=== PATIENT | female | born 1990 | race African-American/Black ===

== ENCOUNTER 2019-08-05 16:39 | Emergency (ER) | payer MEDICAID ==
[~2019-08-05] VITALS: Ht 167.6 cm; Wt 122.5 kg
[2019-08-05 16:58] VITALS: BP_SYST 120
--- NOTE | 2019-08-05 20:15 | NUR ---
Patient to ER CHAIR to gown for evaluation. Side rails up. Report given to IVETH MONREAL.
--- NOTE | 2019-08-05 20:23 | NUR ---
ANGELIA SPANN at bedside examining patient.
--- NOTE | 2019-08-05 20:25 | NUR ---
Pt C/O head pain S/P mechanical slip and fall x 2 days. Denies any KO, N/V, or any other symptoms at this time. Pt is ambulatory and walked to [facility] without incident. Will continue to monitor.
--- NOTE | 2019-08-05 20:38 | NUR ---
Patient given written and verbal discharge instructions and verbalizes understanding. ER MD discussed with patient the results and treatment provided. Patient in stable condition. ID arm band removed. Rx of Tylenol given. Patient educated on pain management and to follow up with PMD. Pain Scale 0. Opportunity for questions provided and answered. Medication side effect fact sheet provided.
[2019-08-05 20:39] VITALS: BP_SYST 120
== END 2019-08-05 20:38 | disposition home or self-care (01) ==
LOC: SED 16:39
DX: S09.90XA Unspecified injury of head, initial encounter (principal); R03.0 Elevated blood-pressure reading, without diagnosis of hypertension; J45.909 Unspecified asthma, uncomplicated; F32.9 Major depressive disorder, single episode, unspecified; W06.XXXA Fall from bed, initial encounter; Y93.89 Activity, other specified; Y92.89 Other specified places as the place of occurrence of the external cause; Y99.8 Other external cause status
CPT/HCPCS: 99282